=== PATIENT | female | born 1950 | race American Indian/Alaskan Native ===

== ENCOUNTER 2019-11-12 17:17 | Emergency (ER) | payer MEDICARE ==
[2019-11-12] MEDS ORDERED: ONDANSETRON 4 MG/2 ML INJ IV ONE (18:48)
[2019-11-12] MEDS ORDERED: FAMOTIDINE 20 MG/2 ML INJ IV ONE (18:48)
[2019-11-12] MEDS ORDERED: SODIUM CHLORIDE 0.9% 500 ML 500 ML IV ONE (18:48)
--- NOTE | 2019-11-12 18:51 | Emergency Department Report ---
ED General Adult HPI - General Chief complaint: Nausea/Vomiting/Diarrhea Stated complaint: HBP/NV Time Seen by Provider: 11/12/19 18:38 Source: patient, EMS (EMS records not available at time of chart dictation.), RN notes reviewed, old records reviewed Mode of arrival: Stretcher Limitations: No Limitations - History of Present Illness Initial comments: The patient is a 69-year-old female, with a history of hypertension, depression, recent history of appendectomy and cholecystectomy, currently on a voluntary placement of a psychiatric facility, for detox for polysubstance use. She is sent to the ER for psychiatric facility for evaluation of hypertension, and reported nausea and vomiting. Patient complains of mild diffuse abdominal burning, nausea vomiting, for the past day or so. She does not have headache, neck pain, chest pain, shortness of breath. She denies urinary symptoms. She is not defecating as much as she normally does. She is not passing flatus as much as she normally does. She thinks that she might be constipated. She denies urinary symptoms. She denies fever that she is aware. She reports that she is not homicidal or suicidal. She is requesting pain medicine. -: Gradual Location: abdomen Radiation: non-radiation Consistency: intermittent Improves with: none Worsens with: none - Related Data Previous Rx's Medication Instructions Recorded Last Taken Type Acetaminophen [Non-Aspirin Extra 500 mg PO Q6HR PRN #30 tablet 11/12/19 Unknown Rx Strength] Yanci Root [Yanci] 250 mg PO QID PRN #30 capsule 11/12/19 Unknown Rx Ibuprofen [Motrin] 400 mg PO Q8H PRN #30 tablet 11/12/19 Unknown Rx Metoclopramide [Reglan] 10 mg PO QID PRN #30 tablet 11/12/19 Unknown Rx levoFLOXacin [Levaquin] 750 mg PO QDAY #9 tablet 11/12/19 Unknown Rx Allergies Allergy/AdvReac Type Severity Reaction Status Date / Time No Known Allergies Allergy Unverified 11/12/19 18:45 ED Review of Systems ROS: Stated complaint: HBP/NV Other details as noted in HPI Constitutional: malaise Eyes: denies: eye discharge ENT: denies: epistaxis Respiratory: denies: wheezing Cardiovascular: denies: syncope Gastrointestinal: abdominal pain, nausea, vomiting. denies: hematemesis, melena, hematochezia Genitourinary: denies: dysuria Musculoskeletal: denies: myalgia Skin: denies: lesions Neurological: weakness Psychiatric: denies: homicidal thoughts, suicidal thoughts Hematological/Lymphatic: denies: easy bleeding ED Past Medical Hx - Past Medical History Previous Medical History?: Yes Additional medical history: heroin abuse - Social History Smoking Status: Current Every Day Smoker Substance Use Type: Alcohol, Heroin - Medications Home Medications: Home Medications Medication Instructions Recorded Confirmed Last Taken Type Acetaminophen [Non-Aspirin Extra 500 mg PO Q6HR PRN #30 tablet 11/12/19 Unknown Rx Strength] Yanci Root [Yanci] 250 mg PO QID PRN #30 capsule 11/12/19 Unknown Rx Ibuprofen [Motrin] 400 mg PO Q8H PRN #30 tablet 11/12/19 Unknown Rx Metoclopramide [Reglan] 10 mg PO QID PRN #30 tablet 11/12/19 Unknown Rx levoFLOXacin [Levaquin] 750 mg PO QDAY #9 tablet 11/12/19 Unknown Rx ED Physical Exam - General Limitations: No Limitations General appearance: alert, anxious - Head Head exam: Present: atraumatic, normocephalic - Eye Eye exam: Present: normal appearance, EOMI. Absent: nystagmus - ENT ENT exam: Present: normal exam, normal orophraynx, mucous membranes moist, normal external ear exam - Neck Neck exam: Present: normal inspection, full ROM. Absent: tenderness, meningismus - Respiratory Respiratory exam: Present: normal lung sounds bilaterally. Absent: respiratory distress - Cardiovascular Cardiovascular Exam: Present: regular rate, normal rhythm, normal heart sounds. Absent: bradycardia, tachycardia, irregular rhythm, systolic murmur, diastolic murmur, rubs, gallop - GI/Abdominal GI/Abdominal exam: Present: soft. Absent: distended, tenderness, guarding, rebound, rigid, pulsatile mass - Extremities Exam Extremities exam: Present: normal inspection, full ROM, other (2+ pulses noted in the bilateral upper and lower extremities. The pelvis is stable. There is no long bony tenderness. The muscular compartments are soft. There is no redness, pus, streaking or erythema.). Absent: pedal edema, calf tenderness - Back Exam Back exam: Present: normal inspection, full ROM. Absent: tenderness, CVA tenderness (R), CVA tenderness (L), paraspinal tenderness, vertebral tenderness - Neurological Exam Neurological exam: Present: alert, oriented X3, normal gait, other (there is no facial droop. The tongue is midline. Extraocular movements are intact bilaterally. Speaking in full sentences. Hearing is grossly intact. 5 out of 5 strength bilateral upper and lower extremities. Sensation is intact to light touch bilateral upper and lower extremities.). Absent: motor sensory deficit - Psychiatric Psychiatric exam: Present: anxious. Absent: homicidal ideation, suicidal ideation - Skin Skin exam: Present: warm, dry, intact, normal color. Absent: rash ED Course Vital Signs 11/12/19 11/12/19 11/12/19 19:22 19:31 19:34 Temperature 99.2 F 99.3 F Pulse Rate 71 75 Respiratory 18 15 Rate Blood Pressure 203/90 Blood Pressure 203/90 [Left] O2 Sat by Pulse 99 99 Oximetry 11/12/19 11/12/19 20:01 21:15 Temperature Pulse Rate 68 Respiratory 16 15 Rate Blood Pressure 198/91 198/95 Blood Pressure [Left] O2 Sat by Pulse 99 99 Oximetry - Reevaluation(s) Reevaluation #1: 11/12/19 20:32 Differential diagnosis, including but not limited to: Constipation, obstruction, colitis, diverticulitis, urinary tract infection, hypertension secondary to pain, chronic hypertension Assessment and plan: 69-year-old female with low-grade temperature, diffuse abdominal discomfort, nausea, vomiting, distant history of appendectomy cholecystectomy, concerning for obstruction versus constipation versus UTI. We will withhold antihypertensive therapy, until further workup as ruled out emergent surgical and infectious causes. We will treat her pain, give fluids, obtain CT scan abdomen and pelvis, and reassess after her initial data points. Reevaluation #2: 11/12/19 21:52 Patient tolerated in liquid feeds. Walking with a steady gait. No active vomiting. CT scan reviewed and appreciated. Biliary labs, unremarkable, no right upper quadrant tenderness. Patient is resting comfortably on the stretcher on her left-hand side. I went back to discuss the results with the patient. She asked for additional morphine, saying "it's Hayes, please give me something." I explained to the patient that I did not feel that this was medically necessary or appropriate. Elevated blood pressure is reviewed and appreciated. This is likely a chronic finding, does not require emergent de-escalation. ED Medical Decision Making - Lab Data Result diagrams: 11/12/19 19:03 11/12/19 19:03 Vital Signs 11/12/19 11/12/19 19:22 19:34 Temperature 99.2 F 99.3 F Pulse Rate 71 Respiratory 18 Rate Blood Pressure 203/90 [Left] O2 Sat by Pulse 99 Oximetry Lab Results 11/12/19 11/12/19 11/12/19 Range/Units 19:03 19:03 19:03 WBC 10.9 (4.5-11.0) K/mm3 RBC 5.43 H (3.65-5.03) M/mm3 Hgb 14.1 (10.1-14.3) gm/dl Hct 42.6 (30.3-42.9) % MCV 78 L (79-97) fl MCH 26 L (28-32) pg MCHC 33 (30-34) % RDW 15.6 H (13.2-15.2) % Plt Count 494 H (140-440) K/mm3 Sodium 134 L (137-145) mmol/L Potassium 3.6 (3.6-5.0) mmol/L Chloride 91.6 L (98-107) mmol/L Carbon Dioxide 26 (22-30) mmol/L Anion Gap 20 mmol/L BUN 22 H (7-17) mg/dL Creatinine 0.9 (0.7-1.2) mg/dL Estimated GFR > 60 ml/min BUN/Creatinine Ratio 24 % Glucose 132 H (65-100) mg/dL Calcium 10.2 (8.4-10.2) mg/dL Magnesium 2.20 (1.7-2.3) mg/dL Total Bilirubin 0.40 (0.1-1.2) mg/dL AST 36 (5-40) units/L ALT 13 (7-56) units/L Alkaline Phosphatase 116 (35-129) units/L Total Creatine Kinase 750 H (30-135) units/L Total Protein 8.9 H (6.3-8.2) g/dL Albumin 4.5 (3.9-5) g/dL Albumin/Globulin Ratio 1.0 % Lipase 17 (13-60) units/L TSH 3.640 (0.270-4.200) mlU/mL Salicylates (2.8-20.0) mg/dL Acetaminophen (10.0-30.0) ug/mL Plasma/Serum Alcohol (0-0.07) % 11/12/19 11/12/19 11/12/19 Range/Units 19:03 19:03 19:03 WBC (4.5-11.0) K/mm3 RBC (3.65-5.03) M/mm3 Hgb (10.1-14.3) gm/dl Hct (30.3-42.9) % MCV (79-97) fl MCH (28-32) pg MCHC (30-34) % RDW (13.2-15.2) % Plt Count (140-440) K/mm3 Sodium (137-145) mmol/L Potassium (3.6-5.0) mmol/L Chloride (98-107) mmol/L Carbon Dioxide (22-30) mmol/L Anion Gap mmol/L BUN (7-17) mg/dL Creatinine (0.7-1.2) mg/dL Estimated GFR ml/min BUN/Creatinine Ratio % Glucose (65-100) mg/dL Calcium (8.4-10.2) mg/dL Magnesium (1.7-2.3) mg/dL Total Bilirubin (0.1-1.2) mg/dL AST (5-40) units/L ALT (7-56) units/L Alkaline Phosphatase (35-129) units/L Total Creatine Kinase (30-135) units/L Total Protein (6.3-8.2) g/dL Albumin (3.9-5) g/dL Albumin/Globulin Ratio % Lipase (13-60) units/L TSH (0.270-4.200) mlU/mL Salicylates < 0.3 L (2.8-20.0) mg/dL Acetaminophen < 5.0 L (10.0-30.0) ug/mL Plasma/Serum Alcohol < 0.01 (0-0.07) % - EKG Data -: EKG Interpreted by Sd EKG shows normal: sinus rhythm Rate: normal - EKG Data When compared to previous EKG there are: previous EKG unavailable 11/12/19 20:33 The EKG shows a sinus rhythm, 72 bpm there is left ventricular hypertrophy, motion artifact, QTC is prolonged, there is no prior for comparison, the EKG is abnormal, it is not consistent with ST elevation myocardial infarction. - Radiology Data Radiology results: pending, report reviewed, image reviewed Print Report Referring Physician: YOLY BENSON Patient Name: DAREK MENDEZ Date of : 1950 Sex: Female Report Date: 2019-11-12 Report Status: Finalized Findings [address] [address] XRay Report Signed Patient: DAREK MENDEZ MR#: [id number] 7 : 1950 Acct:[id number] Age/Sex: 69 / F ADM Date: 11/12/19 Loc: ED Attending Dr: Ordering Physician: YOLY BENSON MD Date of Service: 11/12/19 Procedure(s): XR abdomen 2V Accession Number(s): [id number] cc: YOLY BENSON MD Fluoro Time In Minutes: ABDOMEN 1 VIEW(S) INDICATION / CLINICAL INFORMATION: abd pain n/v. COMPARISON: None available. FINDINGS: TUBES / LINES: None. BOWEL GAS PATTERN: No significant abnormality. ADDITIONAL FINDINGS: Previous cholecystectomy. IMPRESSION: 1. No significant abnormality. Signer Name: Sergio Goyal MD Signed: 11/12/2019 7:56 PM Workstation Name: [id number] Transcribed By: ES Dictated By: Sergio Goyal MD Electronically Authenticated By: Sergio Goyal MD Signed Date/Time: 11/12/19 1956 nt Report Referring Physician: YOLY BENSON Patient Name: DAREK MENDEZ Date of : 1950 Sex: Female Report Date: 2019-11-12 Report Status: Finalized Findings [address] [address] Cat Scan Report Signed Patient: DAREK MENDEZ MR#: [id number] 7 : 1950 Acct:[id number] Age/Sex: 69 / F ADM Date: 11/12/19 Loc: ED Attending Dr: Ordering Physician: YOLY BENSON MD Date of Service: 11/12/19 Procedure(s): CT abdomen pelvis w con Accession Number(s): [id number] cc: YOLY BENSON MD CT abdomen pelvis w con INDICATION / CLINICAL INFORMATION: abd pain htn n/v. TECHNIQUE: All CT scans at this location are performed using CT dose reduction for ALARA by means of automated exposure control. COMPARISON: None available. FINDINGS: Cholecystectomy. Liver is normal. Slight prominence of intrahepatic and extrahepatic biliary system. The spleen is normal. The pancreatic duct is slightly prominent. No evidence of pancreatitis or pancreatic mass. The kidneys and adrenal glands are normal. No small bowel distention. Pelvis: The appendix is normal. No acute findings in the pelvis. Skeletal structures are remarkable for anterolisthesis of L4 on L5. IMPRESSION: 1. No acute abdominal or pelvic abnormalities. 2. Slight biliary ductal and pancreatic prominence may be secondary to cholelithiasis, correlate with appropriate enzymes. Signer Name: Alex Peraza MD Signed: 11/12/2019 9:06 PM Workstation Name: [id number] Transcribed By: GA Dictated By: Alex Peraza MD Electronically Authenticated By: Alex Peraza MD Signed Date/Time: 11/12/19 0513 Critical care attestation.: If time is entered above; I have spent that time in minutes in the direct care of this critically ill patient, excluding procedure time. ED Disposition Clinical Impression: History of nausea and vomiting, Elevated blood pressure reading Disposition: DC/TX-65 PSY HOSP/PSY UNIT Is pt being admited?: No Does the pt Need Aspirin: No Condition: Stable Additional Instructions: Patient should not take metformin medication for the next 2 days, if the patient takes this medication. Patient should take Levaquin antibiotic as directed, cultures were sent today, and results will be available in the next 3-5 days. Please have a primary care doctor contact the medical records department to obtain culture results. Recommend follow-up in 2 days with the primary care doctor, or medical physician for repeat evaluation. Patient had nonspecific elevation of CK today, and this should be followed up in 2 days for repeat checkup and evaluation. Recommends that while patient is taking Levaquin antibiotic, she not take bupr enorphine, Zofran, ciprofloxacin, trazodone. Please return to the emergency room right away with new, worsening or different symptoms, or symptoms not present on the initial emergency room evaluation. Referrals: GINA GUO MD [Primary Care Provider] - 3-5 Days [facility] [Provider Group] - 3-5 Days
[2019-11-12 19:28] LABS: Hematocrit 42.6 % (30.3-42.9); Hemoglobin 14.1 gm/dl (10.1-14.3); Mean Corpuscular HGB Conc 33 % (30-34); Mean Corpuscular Volume 78 fl (79-97); Platelet Count 494 K/mm3 (140-440); Red Blood Count 5.43 M/mm3 (3.65-5.03); Red Cell Distribution Width 15.6 % (13.2-15.2)
[2019-11-12] MEDS ORDERED: MORPHINE 4 MG/1 ML INJ IV ONE (19:33)
[2019-11-12 19:49] LABS: Alanine Aminotransferase 13 units/L (7-56); Albumin 4.5 g/dL (3.9-5); BUN/Creatinine Ratio 24; Blood Urea Nitrogen 22 mg/dL (7-17); Calcium 10.2 mg/dL (8.4-10.2); Hemolysis Index 3
--- NOTE | 2019-11-12 20:01 | XRay Report ---
ABDOMEN 1 VIEW(S) INDICATION / CLINICAL INFORMATION: abd pain n/v. COMPARISON: None available. FINDINGS: TUBES / LINES: None. BOWEL GAS PATTERN: No significant abnormality. ADDITIONAL FINDINGS: Previous cholecystectomy. IMPRESSION: 1. No significant abnormality. Signer Name: Sergio Goyal MD Signed: 11/12/2019 7:56 PM Workstation Name: [id number]
[2019-11-12 20:55] LABS: Basophils % (Manual) 0 % (0.0-1.8); Eosinophils % (Manual) 0 % (0.0-4.3); Total Cells Counted 100
[2019-11-12 20:56] LABS: Large Platelets 1+; Platelet Estimate Consistent w Auto; RBC Morphology Normal
[2019-11-12 20:59] LABS: Bilirubin,Urine NEG (Negative); Blood,Urine SM (Negative); Color,Urine Yellow (Yellow); Urobilinogen,Urine < 2.0 mg/dL (<2.0)
--- NOTE | 2019-11-12 21:11 | Cat Scan Report ---
CT abdomen pelvis w con INDICATION / CLINICAL INFORMATION: abd pain htn n/v. TECHNIQUE: All CT scans at this location are performed using CT dose reduction for ALARA by means of automated e xposure control. COMPARISON: None available. FINDINGS: Cholecystectomy. Liver is normal. Slight prominence of intrahepatic and extrahepatic biliary system. The spleen is normal. The pancreatic duct is slightly prominent. No evidence of pancreatitis or pancreatic mass. The kidneys and adrenal glands are normal. No small bowel distention. Pelvis: The appendix is normal. No acute findings in the pelvis. Skeletal structures are remarkable for anterolisthesis of L4 on L5. IMPRESSION: 1. No acute abdominal or pelvic abnormalities. 2. Slight biliary ductal and pancreatic prominence may be secondary to cholelithiasis, correlate with appropriate enzymes. Signer Name: Alex Peraza MD Signed: 11/12/2019 9:06 PM Workstation Name: [id number]
[2019-11-12] MEDS ORDERED: hydrALAZINE 20 MG/1 ML INJ IV ONE (21:28)
[2019-11-12] MEDS ORDERED: levoFLOXacin 750 MG TAB PO ONE (21:30)
[2019-11-12] MEDS ORDERED: IBUPROFEN ORAL LIQD 100 MG/5 ML ORAL.LIQD PO ONE (21:30)
[2019-11-12 22:18] VITALS: BP 162/69
== END 2019-11-12 23:50 ==
LOC: ED 17:17
DX: R03.0 Elevated blood-pressure reading, without diagnosis of hypertension (principal); R11.2 Nausea with vomiting, unspecified; F17.200 Nicotine dependence, unspecified, uncomplicated; Z79.1 Long term (current) use of non-steroidal anti-inflammatories (NSAID); Z79.899 Other long term (current) drug therapy
CPT/HCPCS: 36415; 74019; 74177; 80053; 81001; 82550; 83690; 83735; 84443; 85007; 85025; 87086; 93005; 93010; 96374; 96375; 99285; J0360; J2270; J2405; J7040; Q9967; 80320; G0480

== ENCOUNTER 2020-04-12 11:57 | Emergency (ER) | payer MEDICARE ==
[2020-04-12] MEDS ORDERED: FAMOTIDINE 20 MG/2 ML INJ IV ONE (12:25)
[2020-04-12] MEDS ORDERED: SODIUM CHLORIDE 0.9% 1000 ML 1,000 ML IV ONE (12:25)
[2020-04-12] MEDS ORDERED: ONDANSETRON 4 MG/2 ML INJ IV ONE ×2 (12:25→16:20)
[2020-04-12] MEDS ORDERED: ACETAMINOPHEN 325 MG TAB PO ONE (13:39)
[2020-04-12] MEDS ORDERED: ACETAMINOPHEN 325 MG TAB ONE (13:40)
[2020-04-12 14:18] LABS: Basophils # (Auto) 0.1 K/mm3 (0.0-0.1); Basophils % (Auto) 0.8 % (0.0-1.8); Eosinophils # (Auto) 0.1 K/mm3 (0.0-0.4); Eosinophils % (Auto) 0.8 % (0.0-4.3); Hematocrit 34.6 % (30.3-42.9); Hemoglobin 11.1 gm/dl (10.1-14.3); Lymphocytes # (Auto) 1.3 K/mm3 (1.2-5.4); Mean Corpuscular HGB Conc 32 % (30-34); Mean Corpuscular Volume 77 fl (79-97); Monocytes # (Auto) 0.3 K/mm3 (0.0-0.8); Monocytes % (Auto) 5.1 % (0.0-7.3); Platelet Count 407 K/mm3 (140-440); Red Blood Count 4.53 M/mm3 (3.65-5.03); Red Cell Distribution Width 17.1 % (13.2-15.2)
[2020-04-12 14:21] LABS: Alanine Aminotransferase 7 units/L (7-56); BUN/Creatinine Ratio 21; Blood Urea Nitrogen 21 mg/dL (7-17); Calcium 9.2 mg/dL (8.4-10.2); Hemolysis Index 38
[2020-04-12] MEDS ORDERED: KETOROLAC 30 MG/1 ML INJ IV ONE (14:42)
--- NOTE | 2020-04-12 15:13 | Emergency Department Report ---
ED N/V/D HPI - General Chief complaint: Abdominal Pain Stated complaint: ABD PAIN/NAUSEA Time Seen by Provider: 04/12/20 12:17 Source: patient, EMS Mode of arrival: Stretcher Limitations: No Limitations - History of Present Illness Initial comments: Patient is a 69-year-old [place]ican [place] female who is presenting from [facility] for evaluation of some epigastric discomfort and nausea and vomiting. Patient is at [facility] because of crack cocaine and heroin addiction. Patient states that this morning after eating breakfast which consisted of pork sausage and eggs she vomited several times. Patient has some mild epigastric discomfort. Patient states she normally does not eat breakfast. Patient denies any cough cold congestion fevers or chills. Location: epigastric Radiation: none Severity: moderate Context: possible food poisoning (Patient stated that the sausage had a strange taste) - Related Data Previous Rx's Medication Instructions Recorded Last Taken Type Acetaminophen [Non-Aspirin Extra 500 mg PO Q6HR PRN #30 tablet 11/12/19 Unknown Rx Strength] Yanci Root [Yanci] 250 mg PO QID PRN #30 capsule 11/12/19 Unknown Rx Ibuprofen [Motrin] 400 mg PO Q8H PRN #30 tablet 11/12/19 Unknown Rx Metoclopramide [Reglan] 10 mg PO QID PRN #30 tablet 11/12/19 Unknown Rx levoFLOXacin [Levaquin] 750 mg PO QDAY #9 tablet 11/12/19 Unknown Rx Ciprofloxacin HCl [Ciprofloxacin 500 mg PO Q12HR #14 tab 11/17/19 Unknown Rx TAB] Ibuprofen [Motrin 600 MG tab] 600 mg PO Q8H PRN #10 tablet 11/17/19 Unknown Rx Metoclopramide HCl [Reglan TAB] 5 mg PO BID PRN #10 tablet 11/17/19 Unknown Rx Allergies Allergy/AdvReac Type Severity Reaction Status Date / Time No Known Allergies Allergy Unverified 04/12/20 12:08 ED Review of Systems ROS: Stated complaint: ABD PAIN/NAUSEA Other details as noted in HPI Comment: All other systems reviewed and negative ED Past Medical Hx - Past Medical History Previous Medical History?: Yes Hx Hypertension: Yes Additional medical history: heroin abuse - Surgical History Hx Cholecystectomy: Yes - Social History Smoking Status: Current Every Day Smoker Substance Use Type: Cocaine, Heroin - Medications Home Medications: Home Medications Medication Instructions Recorded Confirmed Last Taken Type Acetaminophen [Non-Aspirin Extra 500 mg PO Q6HR PRN #30 tablet 11/12/19 Unknown Rx Strength] Yanci Root [Yanci] 250 mg PO QID PRN #30 capsule 11/12/19 Unknown Rx Ibuprofen [Motrin] 400 mg PO Q8H PRN #30 tablet 11/12/19 Unknown Rx Metoclopramide [Reglan] 10 mg PO QID PRN #30 tablet 11/12/19 Unknown Rx levoFLOXacin [Levaquin] 750 mg PO QDAY #9 tablet 11/12/19 Unknown Rx Ciprofloxacin HCl [Ciprofloxacin 500 mg PO Q12HR #14 tab 11/17/19 Unknown Rx TAB] Ibuprofen [Motrin 600 MG tab] 600 mg PO Q8H PRN #10 tablet 11/17/19 Unknown Rx Metoclopramide HCl [Reglan TAB] 5 mg PO BID PRN #10 tablet 11/17/19 Unknown Rx ED Physical Exam - General Limitations: No Limitations General appearance: alert, in no apparent distress - Head Head exam: Present: atraumatic, normocephalic - Eye Eye exam: Present: normal appearance - ENT ENT exam: Present: mucous membranes moist - Neck Neck exam: Present: normal inspection - Respiratory Respiratory exam: Present: normal lung sounds bilaterally. Absent: respiratory distress, wheezes, rales, rhonchi - Cardiovascular Cardiovascular Exam: Present: regular rate, normal rhythm, normal heart sounds. Absent: systolic murmur, diastolic murmur, rubs, gallop - GI/Abdominal GI/Abdominal exam: Present: soft, tenderness, normal bowel sounds. Absent: distended, guarding, rebound, rigid - Extremities Exam Extremities exam: Present: normal inspection - Back Exam Back exam: Present: normal inspection - Neurological Exam Neurological exam: Present: alert, oriented X3 - Psychiatric Psychiatric exam: Present: normal affect, normal mood - Skin Skin exam: Present: warm, dry, intact, normal color. Absent: rash ED Course Vital Signs 04/12/20 04/12/20 04/12/20 12:05 13:45 14:45 Temperature 98.3 F Pulse Rate 71 Respiratory 16 18 18 Rate Blood Pressure 146/68 O2 Sat by Pulse 99 Oximetry ED Medical Decision Making - Lab Data Result diagrams: 04/12/20 12:52 04/12/20 12:52 Lab Results 04/12/20 04/12/20 Range/Units 12:52 12:52 WBC 6.6 (4.5-11.0) K/mm3 RBC 4.53 (3.65-5.03) M/mm3 Hgb 11.1 (10.1-14.3) gm/dl Hct 34.6 (30.3-42.9) % MCV 77 L (79-97) fl MCH 25 L (28-32) pg MCHC 32 (30-34) % RDW 17.1 H (13.2-15.2) % Plt Count 407 (140-440) K/mm3 Lymph % (Auto) 20.0 (13.4-35.0) % [place] % (Auto) 5.1 (0.0-7.3) % Eos % (Auto) 0.8 (0.0-4.3) % Baso % (Auto) 0.8 (0.0-1.8) % Lymph # 1.3 (1.2-5.4) K/mm3 [place] # 0.3 (0.0-0.8) K/mm3 Eos # 0.1 (0.0-0.4) K/mm3 Baso # 0.1 (0.0-0.1) K/mm3 Seg Neutrophils % 73.3 H (40.0-70.0) % Seg Neutrophils # 4.9 (1.8-7.7) K/mm3 Sodium 132 L (137-145) mmol/L Potassium 3.8 (3.6-5.0) mmol/L Chloride 90.1 L (98-107) mmol/L Carbon Dioxide 29 (22-30) mmol/L Anion Gap 17 mmol/L BUN 21 H (7-17) mg/dL Creatinine 1.0 (0.7-1.2) mg/dL Estimated GFR > 60 ml/min BUN/Creatinine Ratio 21 % Glucose 128 H (65-100) mg/dL Calcium 9.2 (8.4-10.2) mg/dL Total Bilirubin 0.20 (0.1-1.2) mg/dL AST 11 (5-40) units/L ALT 7 (7-56) units/L Alkaline Phosphatase 139 H (35-129) units/L Total Protein 7.2 (6.3-8.2) g/dL Albumin 4.0 (3.9-5) g/dL Albumin/Globulin Ratio 1.3 % Lipase 60 (13-60) units/L - Medical Decision Making Patient was given antiemetics and as well as IV fluids. Laboratory studies do show some mild dehydration. Patient is lipase within normal limits making pancreatitis less likely. Other laboratory studies unremarkable. Patient's symptoms have been controlled and she will be transferred back to [facility]. Critical care attestation.: If time is entered above; I have spent that time in minutes in the direct care of this critically ill patient, excluding procedure time. ED Disposition Clinical Impression: Acute gastritis Qualifiers: Gastritis type: unspecified gastritis Gastritis bleeding: without bleeding Qualified Code(s): K29.00 - Acute gastritis without bleeding Disposition: DC/TX-65 PSY HOSP/PSY UNIT Is pt being admited?: No Does the pt Need Aspirin: No Condition: Stable Instructions: Abdominal Pain (ED) Referrals: PRIMARY CARE, [Primary Care Provider] - 3-5 Days Time of Disposition: 15:13
[2020-04-12] MEDS ORDERED: ONDANSETRON 4 MG/2 ML INJ ONE (16:19)
[2020-04-12 16:33] VITALS: BP 190/79
== END 2020-04-12 16:36 ==
LOC: ED 11:57
DX: K29.00 Acute gastritis without bleeding (principal); R11.2 Nausea with vomiting, unspecified; I10 Essential (primary) hypertension; F17.200 Nicotine dependence, unspecified, uncomplicated; F12.90 Cannabis use, unspecified, uncomplicated; F11.10 Opioid abuse, uncomplicated; Z90.49 Acquired absence of other specified parts of digestive tract; Z79.899 Other long term (current) drug therapy
CPT/HCPCS: 36415; 80053; 83690; 85025; 96361; 96374; 96375; 96376; 99284; J1885; J2405; J7030

== ENCOUNTER 2021-06-14 01:33 | Emergency (ER) | payer MEDICARE ==
--- NOTE | 2021-06-14 02:24 | Emergency Department Report ---
HPI - General Chief Complaint: Fall Time Seen by Provider: 06/14/21 02:13 - HPI HPI: Room 39 the patient is a 70-year-old female present with a chief complaint of "I want detox." Patient was brought in by EMS after a ground-level fall from her chair reportedly injuring her forehead and left knee. However when asked why she came to the emergency department the patient states she came to detox from heroin and crack cocaine. Patient acknowledges she fell from a chair but denies loss of consciousness. Patient states she injured her left knee in the fall ED Past Medical Hx - Past Medical History Hx Hypertension: Yes Additional medical history: heroin abuse - Surgical History Hx Cholecystectomy: Yes - Family History Family history: no significant - Social History Smoking Status: Unknown if ever smoked Substance Use Type: Cocaine, Heroin (IVDA) - Medications Home Medications: Home Medications Medication Instructions Recorded Confirmed Last Taken Type Yanci Root [Yanci] 250 mg PO QID PRN #30 capsule 11/12/19 Unknown Rx Ibuprofen [Motrin] 400 mg PO Q8H PRN #30 tablet 11/12/19 Unknown Rx Metoclopramide [Reglan] 10 mg PO QID PRN #30 tablet 11/12/19 Unknown Rx levoFLOXacin [Levaquin] 750 mg PO QDAY #9 tablet 11/12/19 Unknown Rx Ciprofloxacin HCl [Ciprofloxacin 500 mg PO Q12HR #14 tab 11/17/19 Unknown Rx TAB] Ibuprofen [Motrin 600 MG tab] 600 mg PO Q8H PRN #10 tablet 11/17/19 Unknown Rx Metoclopramide HCl [Reglan TAB] 5 mg PO BID PRN #10 tablet 11/17/19 Unknown Rx Famotidine [Pepcid] 40 mg PO QHS #10 tablet 04/12/20 Unknown Rx Ondansetron [Zofran Odt] 4 mg PO Q8HR #10 tab.rapdis 04/12/20 Unknown Rx Acetaminophen [Non-Aspirin Extra 500 mg PO Q6HR PRN #30 tablet 04/28/20 Unknown Rx Strength] Nitrofurantoin [place]/M-Cryst 100 mg PO Q12HR 10 Days #20 capsule 04/28/20 Unknown Rx [Macrobid CAP] Cyclobenzaprine [Flexeril] 10 mg PO TID PRN #10 tablet 06/14/21 Unknown Rx Ibuprofen [Motrin 800 MG tab] 800 mg PO Q8HR PRN #20 tablet 06/14/21 Unknown Rx ED Review of Systems ROS: Stated complaint: MED CLEARANCE/FALL Other details as noted in HPI Constitutional: no symptoms reported Eyes: denies: eye pain ENT: denies: throat pain Respiratory: no symptoms reported Cardiovascular: denies: chest pain Endocrine: no symptoms reported Gastrointestinal: denies: abdominal pain Genitourinary: denies: dysuria Musculoskeletal: arthralgia Neurological: headache Physical Exam - Physical Exam Vital Signs: Vital Signs 06/14/21 01:58 Temperature 97.6 F Pulse Rate 77 Respiratory 16 Rate Blood Pressure 144/82 O2 Sat by Pulse 97 Oximetry Physical Exam: GENERAL: The patient is well-developed well-nourished female lying on stretcher in position not appearing to be in acute distress. [] HEENT: Normocephalic. Atraumatic. Extraocular motions are intact. Patient has moist mucous membranes. NECK: Supple. No axial step-offs CHEST/LUNGS: Clear to auscultation. There is no respiratory distress noted. HEART/CARDIOVASCULAR: Regular. There is no tachycardia. There is no gallop rub or murmur. ABDOMEN: Abdomen is soft, nontender. Patient has normal bowel sounds. There is no abdominal distention. SKIN: There is no rash. There is no edema. There is no diaphoresis. NEURO: The patient is asleep but awakens to verbal stimuli. The patient is cooperative. The patient has no focal neurologic deficits. The patient has normal speech MUSCULOSKELETAL: There is no evidence of acute injury. ED Course Vital Signs 06/14/21 01:58 Temperature 97.6 F Pulse Rate 77 Respiratory 16 Rate Blood Pressure 144/82 O2 Sat by Pulse 97 Oximetry ED Medical Decision Making - Lab Data Result diagrams: 06/14/21 02:56 06/14/21 02:56 - Radiology Data Radiology results: report reviewed (CT head, CT cervical spine, bilateral knee x-ray), image reviewed (CT head, CT cervical spine, bilateral knee x-rays) interpreted by me: Bilateral knee x-ray-no acute fracture seen. No dislocation [facility] [address] [place] [address] Cat Scan Report Signed Patient: DAREK MENDEZ MR#: [id number] 7 : 1950 Acct:[id number] Age/Sex: 70 / F ADM Date: 06/14/21 Loc: ED Attending Dr: Ordering Physician: RICARDO MARIE MD Date of Service: 06/14/21 Procedure(s): CT cervical spine wo con Accession Number(s): [id number] cc: RICARDO MARIE MD CT CERVICAL SPINE WITHOUT CONTRAST INDICATION: Neck pain after fall. COMPARISON: None available. TECHNIQUE: Axial, coronal and sagittal CT imaging of the cervical spine without contrast was performed. All CT scans at this location are performed using CT dose reduction for ALARA by means of automated exposure control. FINDINGS: VERTEBRAE:No acute fracture. Normal alignment. DISC SPACES: There are multilevel mild discogenic degenerative changes, most notable at C4- C5. FACET JOINTS:No significant abnormality. CENTRAL CANAL: No central canal stenosis or neural foraminal narrowing. SOFT TISSUES:No significant abnormality. LUNG APICES: No significant abnormality. ADDITIONAL FINDINGS: None IMPRESSION: 1. No acute findings. 2. Mild cervical spondylosis. Signer Name: Abdullahi Vogt MD Signed: 06/14/2021 3:03 AM Workstation Name: [id number] Transcribed By: MN Dictated By: Abdullahi Vogt MD Electronically Authenticated By: Abdullahi Vogt MD Signed Date/Time: 06/14/21302 DD/ 1 TD/TT: Print Cancel [facility] [address] [place] [address] Cat Scan Report Signed Patient: DAREK MENDEZ MR#: [id number] 7 : 1950 ct:[id number] Age/Sex: 70 / F ADM Date: 06/14/21 Loc: ED Attending Dr: Ordering Physician: RICARDO MARIE MD Date of Service: 06/14/21 Procedure(s): CT head/brain wo con Accession Number(s): [id number] cc: RICARDO MARIE MD CT HEAD WITHOUT CONTRAST INDICATION : Headache after fall. TECHNIQUE: Axial, coronal and sagittal CT imaging was performed from the skull apex through the skull base without contrast. All CT scans at this location are performed using CT dose reduction for ALARA by means of automated exposure control. COMPARISON: CT head without contrast from 11/17/2019 FINDINGS: PARENCHYMA: No mass, midline shift, hemorrhage, extraaxial collection or acute territorial infarction. An old lacuna r infarction along the left basal ganglia and probable chronic microvascular ischemic changes along the periventricular white matter are unchanged. Age- appropriate generalized atrophy is unchanged as well. VENTRICLES: Symmetric and normal in size. SOFT TISSUES: No significant abnormality of the included soft tissues/orbits. BONES: No acute osseous abnormality. SINUSES: No significant abnormality. ADDITIONAL FINDINGS: None. IMPRESSION: 1. No acute intracranial abnormality. No significant interval changes. Signer Name: Abdullahi Vogt MD Signed: 06/14/2021 3:02 AM Workstation Name: [id number] Transcribed By: MATTHIEU Dictated By: Abdullahi Vogt MD Electronically Authenticated By: Abdullahi Vogt MD Signed Date/Time: 06/14/21301 DD/ 9 TD/TT: Print [facility] [address] [place] [address] XRay Report Signed Patient: DAREK MENDEZ MR#: [id number] 7 : 1950 Acct:[id number] Age/Sex: 70 / F ADM Date: 06/14/21 Loc: ED Attending Dr: Ordering Physician: RICARDO MARIE MD Date of Service: 06/14/21 Procedure(s): XR knee BILAT 1-2V Accession Number(s): [id number] cc: RICARDO MARIE MD Fluoro Time In Minutes: BILATERAL KNEES 2 VIEWS INDICATION / CLINICAL INFORMATION: Bilateral knee pain after fall. COMPARISON: None available. FINDINGS: This exam is limited by lack of lateral views of the knees. BONES and JOINT(S): No acute fracture or subluxation. No significant arthritis. SOFT TISSUES: No significant ab normality. ADDITIONAL FINDINGS: None. IMPRESSION: 1. No acute findings. Signer Name: Abdullahi Vogt MD Signed: 06/14/2021 2:57 AM Workstation Name: [id number] Transcribed By: MN Dictated By: Abdullahi Vogt MD Electronically Authenticated By: Abdullahi Vogt MD Signed Date/Time: 06/14/21256 DD/ 5 TD/TT: Print Cancel - Differential Diagnosis Closed head injury, left knee contusion, polysubstance abuse Critical care attestation.: If time is entered above; I have spent that time in minutes in the direct care of this critically ill patient, excluding procedure time. ED Disposition Clinical Impression: Closed head injury, Polysubstance abuse, Knee contusion Disposition: TO HOME OR SELFCARE Is pt being admited?: No Does the pt Need Aspirin: No Condition: Stable Prescriptions: Cyclobenzaprine [Flexeril] 10 mg PO TID PRN #10 tablet PRN Reason: Muscle Spasm Ibuprofen [Motrin 800 MG tab] 800 mg PO Q8HR PRN #20 tablet PRN Reason: Pain, Moderate (4-6) Referrals: PRIMARY CARE, [Primary Care Provider] - 3-5 Days TANK COLON MD [Staff Physician] - 3-5 Days (Dr. Colon is an orthopedic surgeon. Please follow-up with him for further evaluation)
--- NOTE | 2021-06-14 03:01 | XRay Report ---
BILATERAL KNEES 2 VIEWS INDICATION / CLINICAL INFORMATION: Bilateral knee pain after fall. COMPARISON: None available. FINDINGS: This exam is limited by lack of lateral views of the knees. BONES and JOINT(S): No acute fracture or subluxation. No significant arthritis. SOFT TISSUES: No significant abnormality. ADDITIONAL FINDINGS: None. IMPRESSION: 1. No acute findings. Signer Name: Abdullahi Vogt MD Signed: 06/14/2021 2:57 AM Workstation Name: [id number]
--- NOTE | 2021-06-14 03:06 | Cat Scan Report ---
CT HEAD WITHOUT CONTRAST INDICATION : Headache after fall. TECHNIQUE: Axial, coronal and sagittal CT imaging was performed from the skull apex through the skul l base without contrast. All CT scans at this location are performed using CT dose reduction for ALA RA by means of automated exposure control. COMPARISON: CT head without contrast from 11/17/2019 FINDINGS: PARENCHYMA: No mass, midline shift, hemorrhage, extraaxial collection or acute territorial infarctio n. An old lacunar infarction along the left basal ganglia and probable chronic microvascular ischemi c changes along the periventricular white matter are unchanged. Age-appropriate generalized atrophy i s unchanged as well. VENTRICLES: Symmetric and normal in size. SOFT TISSUES: No significant abnormality of the included soft tissues/orbits. BONES: No acute osseous abnormality. SINUSES: No significant abnormality. ADDITIONAL FINDINGS: None. IMPRESSION: 1. No acute intracranial abnormality. No significant interval changes. Signer Name: Abdullahi Vogt MD Signed: 06/14/2021 3:02 AM Workstation Name: [id number]
--- NOTE | 2021-06-14 03:08 | Cat Scan Report ---
CT CERVICAL SPINE WITHOUT CONTRAST INDICATION: Neck pain after fall. COMPARISON: None available. TECHNIQUE: Axial, coronal and sagittal CT imaging of the cervical spine without contrast was performe d. All CT scans at this location are performed using CT dose reduction for ALARA by means of automat ed exposure control. FINDINGS: VERTEBRAE:No acute fracture. Normal alignment. DISC SPACES: There are multilevel mild discogenic degenerative changes, most notable at C4-C5. FACET JOINTS:No significant abnormality. CENTRAL CANAL: No central canal stenosis or neural foraminal narrowing. SOFT TISSUES:No significant abnormality. LUNG APICES: No significant abnormality. ADDITIONAL FINDINGS: None IMPRESSION: 1. No acute findings. 2. Mild cervical spondylosis. Signer Name: Abdullahi Vogt MD Signed: 06/14/2021 3:03 AM Workstation Name: [id number]
[2021-06-14 03:26] LABS: Basophils # (Auto) 0.1 K/mm3 (0.0-0.1); Basophils % (Auto) 0.7 % (0.0-1.8); Eosinophils # (Auto) 0.3 K/mm3 (0.0-0.4); Eosinophils % (Auto) 3.8 % (0.0-4.3); Hematocrit 32.4 % (30.3-42.9); Hemoglobin 10.6 gm/dl (10.1-14.3); Lymphocytes # (Auto) 1.8 K/mm3 (1.2-5.4); Lymphocytes % (Auto) 22.3 % (13.4-35.0); Mean Corpuscular HGB Conc 33 % (30-34); Mean Corpuscular Volume 77 fl (79-97); Monocytes # (Auto) 0.5 K/mm3 (0.0-0.8); Monocytes % (Auto) 6.7 % (0.0-7.3); Platelet Count 385 K/mm3 (140-440); Red Blood Count 4.18 M/mm3 (3.65-5.03); Red Cell Distribution Width 18.7 % (13.2-15.2)
[2021-06-14 03:45] LABS: Calcium 9.5 mg/dL (8.4-10.2)
--- NOTE | 2021-06-14 12:29 | Consultation ---
History of Present Illness - Reason for Consult Consult date: 06/14/21 Reason for consult: mental health evaluation - History of Present Psychiatric Illness ED Note: Room 39 the patient is a 70-year-old female present with a chief complaint of "I want detox." Patient was brought in by EMS after a ground-level fall from her chair reportedly injuring her forehead and left knee. However when asked why she came to the emergency department the patient states she came to detox from heroin and crack cocaine. Patient acknowledges she fell from a chair but denies loss of consciousness. Patient states she injured her left knee in the fall. Sharri Watts is a 70 year old female with a history of Depression and Opioid use disorder who presents to the ED wanting detox. In my interview with the patient , she reports that she has been using heroine on and off for a longtime with her longest sobriety period as three years. She states she relapsed about 2 years ago, and she currently spends about $80 per day. The patient reports she panhandles to maintain her habit. She reports that she was started on Suboxone about [address] [facility] but states she continued using heroine ( Last used yesterday). She presents with some withdrawal symptoms: muscle aches, fatigue, depression and cravings. The patient endorses suicidal ideation without a plan and denies hallucinations. Diagnoses: Depression and Opioid Suicide attempts or Self-harm behavior: Denies Prior psychiatric hospitalizations: Multiple Substance Abuse history: Heroine Previous psychiatric medications tried: Klonopin, Gabapentin, Depakote Outpatient treatment: Yes PAST MEDICAL HISTORY: unknown Family Psychiatric History: None reported or documented SOCIAL HISTORY Marital Status: Single Living Arrangements: Lives with sister Employment Status: unemployed Access to guns/weapons: Denies Education: some college History of Abuse: none reported Legal History: none reported REVIEW OF SYSTEMS Constitutional: Negative for weight loss ENT: Negative for stridor Respiratory: Negative for cough or hemoptysis All other systems reviewed and are negative MENTAL STATUS EXAMINATION General Appearance and Behavior: Age appropriate, dressed appropriately, calm and cooperative Cooperation: Participating Psychomotor Behavior: psychomotor normal Mood: calm Affect and affective range: Congruent with stated mood Thought Process: goal directed Thought Content: with normal limits Speech: Normal volume, Regular rate and rhythm, Intellectual Functioning: Average Suicidal Ideation: Yes Homicidal Ideation: Denied Hallucinations: Denies Delusions: None elicited Impulse Control: Unimpaired Insight and Judgment: Limited insight and judgment Memory: Normal Attention: Undivided Orientation: Alert, oriented Assessment and Plan (1) Major depressive disorder, recurrent , severe- F33.2 (2) Opioid use disorder, severe F11.20 Treatment plan Risks, benefits and alternatives of medications discussed with the patient, questions answered and consent obtained from patient. PSYCHOTHERAPY: Supportive psychotherapy provided MEDICAL: Per primary team DELIRIUM PRECAUTIONS: Please re-orient patient frequently, keep lights on during the day, and minimize benzodiazepines and opiates as these medications could worsen patient's confusion. 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 FOLLOW-UP: Will follow. Thank you for the consult. Please contact with any questions and/or concerns. Case staffed with Dr. Jain Mental Status Exam - Vital signs Medications and Allergies Medications and Allergies Allergies Allergy/AdvReac Type Severity Reaction Status Date / Time No Known Allergies Allergy Unverified 04/12/20 12:08 Home Medications Medication Instructions Recorded Confirmed Last Taken Type Yanci Root [Yanci] 250 mg PO QID PRN #30 capsule 11/12/19 Unknown Rx Ibuprofen [Motrin] 400 mg PO Q8H PRN #30 tablet 11/12/19 Unknown Rx Metoclopramide [Reglan] 10 mg PO QID PRN #30 tablet 11/12/19 Unknown Rx levoFLOXacin [Levaquin] 750 mg PO QDAY #9 tablet 11/12/19 Unknown Rx Ciprofloxacin HCl [Ciprofloxacin 500 mg PO Q12HR #14 tab 11/17/19 Unknown Rx TAB] Ibuprofen [Motrin 600 MG tab] 600 mg PO Q8H PRN #10 tablet 11/17/19 Unknown Rx Metoclopramide HCl [Reglan TAB] 5 mg PO BID PRN #10 tablet 11/17/19 Unknown Rx Famotidine [Pepcid] 40 mg PO QHS #10 tablet 04/12/20 Unknown Rx Ondansetron [Zofran Odt] 4 mg PO Q8HR #10 tab.rapdis 04/12/20 Unknown Rx Acetaminophen [Non-Aspirin Extra 500 mg PO Q6HR PRN #30 tablet 04/28/20 Unknown Rx Strength] Nitrofurantoin [place]/M-Cryst 100 mg PO Q12HR 10 Days #20 capsule 04/28/20 Unknown Rx [Macrobid CAP] Cyclobenzaprine [Flexeril] 10 mg PO TID PRN #10 tablet 06/14/21 Unknown Rx Ibuprofen [Motrin 800 MG tab] 800 mg PO Q8HR PRN #20 tablet 06/14/21 Unknown Rx Mental Status Exam - Vital signs Last Vital Signs Temp 97.6 F 06/14/21 01:58 Pulse 77 06/14/21 01:58 Resp 16 06/14/21 01:58 BP 144/82 06/14/21 01:58 Pulse Ox 97 06/14/21 01:58 Results Result Diagrams: 06/14/21 02:56 06/14/21 02:56 Abnormal lab results 06/14/21 06/14/21 Range/Units 02:56 02:56 MCV 77 L (79-97) fl MCH 25 L (28-32) pg RDW 18.7 H (13.2-15.2) % BUN 18 H (7-17) mg/dL All other labs normal.
[2021-06-14] MEDS ORDERED: ACETAMINOPHEN 500 MG TAB PO ONE (16:12)
[2021-06-14 17:33] LABS: Bacteria,Urine 4+ /HPF (Negative); Bilirubin,Urine NEG (Negative); Blood,Urine NEG (Negative); Color,Urine Amber (Yellow); Mucus,Urine FEW /HPF
[2021-06-14 17:35] VITALS: BP 130/69
[2021-06-14 18:31] LABS: Benzodiazepines Screen,Urine Negative; Cannabinoid Screen,Urine Negative; Methadone Screen,Urine Negative
[2021-06-14 18:48] LABS: Amphetamine Screen,Urine Positive; Cocaine Screen,Urine Positive; Opiate Screen,Urine Positive
== END 2021-06-14 19:08 | disposition home or self-care (01) ==
LOC: ED 01:33
DX: S80.02XA Contusion of left knee, initial encounter (principal); S09.90XA Unspecified injury of head, initial encounter; F19.10 Other psychoactive substance abuse, uncomplicated; I10 Essential (primary) hypertension; Z90.49 Acquired absence of other specified parts of digestive tract; Z79.899 Other long term (current) drug therapy; W17.89XA Other fall from one level to another, initial encounter; Y93.89 Activity, other specified; Y92.89 Other specified places as the place of occurrence of the external cause; Y99.8 Other external cause status
CPT/HCPCS: 36415; 70450; 72125; 80048; 80307; 80320; 81001; 85025; 87086; G0480